=== PATIENT | female | born 1980 | race Caucasian/White ===

== ENCOUNTER 2016-11-21 08:36 | Day surgery (SDC) | payer BC ==
[~2016-11-21 08:36] MED LIST: Lactated Ringers 1,000 ML IV SCH
[2016-11-21] MEDS ORDERED: Ondansetron 4 MG/2 ML SDV ONE (08:55)
[2016-11-21] MEDS ORDERED: Lidocaine 2% 5 ML SDV ONE (08:55)
[2016-11-21] MEDS ORDERED: Propofol 200 MG/20 ML SDV ONE (08:56)
[2016-11-21] MEDS ORDERED: Midazolam 1 MG/ML 2 ML SDV ONE (08:56)
[2016-11-21] MEDS ORDERED: fentaNYL 250 MCG/5 ML SDV ONE (08:56)
--- NOTE | 2016-11-21 09:09 | PCM.PREANE ---
Preanesthetic Assessment - ANESTHESIA/TRANSFUSION/FAMILY HX Anesthesia/Transfusion History: Prior Anesthesia Type of Anesthesia Reaction: Denies: Allergy, Anesthesia Awareness, Excessive Somnolence, Excessive Nausea/Vomiting, Excessive Itching, Excessive Shivering, Malignant Hyperthermia, Malignant Hyperthermia, Family History, Pseudocholinesterase Deficiency, Pseudocholinesterase Deficiency, Family History of, Urinary Retention, Unknown, Other (see below) Family History of Anesthesia Reaction: No Other Intubation History Comment: no known problems - REVIEW OF SYSTEMS Constitutional: Reports: no symptoms 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 Respiratory: Reports: no symptoms Cardiovascular: Reports: no symptoms GI: Reports: no symptoms Other: Reports: none - PHYSICAL ASSESSMENT O2 Sat by Pulse Oximetry: 98 RR: 16 Vital Signs: Last Vital Signs Temp 37.1 C 11/21/16 08:52 Pulse 75 11/21/16 08:52 Resp 16 11/21/16 08:52 BP 125/83 11/21/16 08:52 Pulse Ox 98 11/21/16 08:52 Height: 1.68 m Weight: 93.44 kg ASA Class: 2 Mental Status: alert & oriented x3 Airway Class: Mallampati = 2 Dentition: Reports: normal dentition Thyro-Mental Finger Breadths: 3 Mouth Opening Finger Breadths: 3 ROM/Head Extension: full Respiratory Status: lungs clear to auscultation bilaterally Cardiovascular Status: regular rate & rhythm, normal S1, S2, no murmur, blood pressure WNL - LAB Values: Laboratory Last Values WBC 7.80 K/uL (4.0-11.0) 11/20/16 13:51 RBC 4.76 M/uL (4.30-5.90) 11/20/16 13:51 Hgb 13.5 g/dL (12.0-16.0) 11/20/16 13:51 Hct 39.7 % (36.0-46.0) 11/20/16 13:51 MCV 83.4 fL (80.0-98.0) 11/20/16 13:51 MCH 28.4 pg (27.0-32.0) 11/20/16 13:51 MCHC 34.0 g/dL (31.0-37.0) 11/20/16 13:51 RDW Std Deviation 38.5 fl (28.0-62.0) 11/20/16 13:51 RDW Coeff of Anum 13 % (11.0-15.0) 11/20/16 13:51 Plt Count 200 K/uL (150-400) 11/20/16 13:51 MPV 9.20 fL (7.40-12.00) 11/20/16 13:51 Nucleated RBC % 0.0 /100WBC 11/20/16 13:51 Nucleated RBCs # 0 K/uL 11/20/16 13:51 HCG, Qual NEGATIVE (NEG) 11/20/16 13:51 - ALLERGIES Allergies/Adverse Reactions: Allergies Allergy/AdvReac Type Severity Reaction Status Date / Time No Known Allergies Allergy Verified 10/20/15 10:12 - BLOOD Blood Available: No - ANESTHESIA PLAN Preop Beta Galen: No Anesthesia Type Planned: general anesthesia - ACKNOWLEDGEMENTS Pt an appropriate candidate for the planned anesthesia: Yes Alternatives and risks of anesthesia discussed w pt/guardian: Yes Pt/Guardian understands and agree with anesthesia plan: Yes PreAnesthesia Questionnaire Gastrointestinal History: Genitourinary History: Reports: Renal calculus Other Genitourinary History: hx kidney stones DENTAL BILLING SPECIALIST History: Reports: Polycystic Ovaries, , Other (see below) ( paiful periods) Musculoskeletal History: Reports: Fracture Psychiatric History: Reports: Anxiety, Depression Endocrine/Metabolic History: Reports: Obesity/BMI 30+ - Past Surgical History Head Surgeries/Procedures: Reports: None Female Surgical History: Reports: Breast reduction, Cervical cryotherapy Other Female Surgeries/Procedures: hx of laparoscopy for PCOS '01, breast reduction '02, laser of cervix '05 Musculoskeletal Surgical History: Reports: Other (see below) Other Musculoskeletal Surgeries/Procedures:: hx surgery for fx left leg/ankle with plate - SUBSTANCE USE Smoking Status *Q: Former Smoker (quit 10 years ago) Recreational Drug Use History: No - HOME MEDS Home Medications: Home Meds buPROPion [Wellbutrin XL] 1 tab PO DAILY 11/16/16 [History] - CURRENT (IN HOUSE) MEDS Current Meds: Current Medications Lactated Ringer's (Ringers, Lactated) 1,000 mls @ 125 mls/hr IV ASDIRECTED [facility] Last Admin: 11/21/16 08:56 Dose: 125 mls/hr Discontinued Medications Fentanyl (Sublimaze) Confirm Administered Dose 250 mcg .ROUTE .STK-MED ONE Stop: 11/21/16 08:57 Lidocaine (Xylocaine-Mpf 2%) Confirm Administered Dose 5 ml .ROUTE .STK-MED ONE Stop: 11/21/16 08:56 Midazolam HCl (Versed 1 Mg/Ml) Confirm Administered Dose 2 mg .ROUTE .STK-MED ONE Stop: 11/21/16 08:57 Ondansetron HCl (Zofran) Confirm Administered Dose 4 mg .ROUTE .STK-MED ONE Stop: 11/21/16 08:56 Propofol (Diprivan 20 Ml) Confirm Administered Dose 200 mg .ROUTE .STK-MED ONE Stop: 11/21/16 08:57
[2016-11-21] MEDS ORDERED: ePHEDrine 50 MG/ML SDV ONE (09:59)
[2016-11-21] MEDS ORDERED: fentaNYL 100 MCG/2 ML SDV IVPUSH PRN (10:08)
[2016-11-21] MEDS ORDERED: Lactated Ringers 1,000 ML IV SCH (10:15)
[2016-11-21] MEDS ORDERED: Phenylephrine/Normal Saline 100 MCG/ML 10 ML Syringe ONE (10:19)
--- NOTE | 2016-11-21 10:40 | PCM.OPNOTE ---
- General Post-Op/Procedure Note Date of Surgery/Procedure: 11/21/16 Operative Procedure(s): cervical biopsies, fractions dilatation and curettage, diagnostic hysteroscopy. Findings: Uterus anteverted, bilateral tubal ostia identified, no endometrial lesions, no endocervical lesions, ectropion very friable, no cervical lesions identified. Pre Op Diagnosis: abnormal uterine bleeding, postcoital bleeding. Post-Op Diagnosis: Same Anesthesia Technique: General ET tube Primary Surgeon: Ekaterina Arreola Anesthesia Provider: Kwesi Olmstead Pathology: cervical biopsies at 5,7 and 12 o'clock, endocervical curettings, endometrial curettings. EBL in mLs: 50 Complications: None Condition: Good
[2016-11-21 12:13] VITALS: BP 112/74
--- NOTE | 2016-11-21 12:25 | OR ---
SURGEON: Ekaterina Arreola M.D. DATE OF PROCEDURE: 11/21/2016 PREOPERATIVE DIAGNOSIS: Abnormal uterine bleeding with postcoital bleeding. POSTOPERATIVE DIAGNOSIS: Abnormal uterine bleeding with postcoital bleeding. PROCEDURE: Cervical biopsies, fractional D and C, diagnostic hysteroscopy, and cauterization of the exocervix. ANESTHESIA: General endotracheal. FLUIDS: 1300 mL crystalloid. ESTIMATED BLOOD LOSS: 50 mL. FINDINGS: There was a large ectropion which was very friable and bled significantly with biopsies. The endocervix and uterine cavity and endometrium appeared normal on hysteroscopy. There was excellent visualization of the uterine cavity and cervix on hysteroscopy. Bimanual examination had revealed an anteverted 7-week size uterus, mobile without any adnexal masses. COMPLICATIONS: None known. DISPOSITION: Stable to recovery. HYSTEROSCOPIC DEFICIT: 45 mL. BRIEF HISTORY: This is a 36-year-old female. She presents with abnormal uterine bleeding. She has consistent bleeding during and sometimes after intercourse. [place] is not painful but she has a large amount of bright red blood following intercourse and that lasts for a day or two subsequently. She does not necessarily have pain. Periods have been irregular. She states that this is normal for her during basketball season due to stress. She also notes that her most recent period was extremely heavy but only lasted 3 days. She does have a personal history of cervical dysplasia of RHINA 2 to 3 with a prior laser ablation in 2004. Pap smears since that time have been normal. Pap smear on 10/24/2016 was normal. Saline-enhanced ultrasound was also performed. It did not reveal any discrete polyps or lesions, however, she requires tissue sampling including endocervical curetting due to her history of cervical dysplasia. Also, I have recommended cauterization of the cervix as I believe in the absence of other pathology that the bleeding is coming from a very friable ectropion. Therefore, we will proceed with a ball-tip cautery of the area of ectropion at the time of hysteroscopy if no other etiology is identified. Surgical risks were discussed including bleeding, infection, uterine perforation, with injury to surrounding organs, risk of fluid overload, risk of thromboembolism with the cauterization procedure, risk of cervical stenosis, and anesthesia risk were all discussed. Understanding all these risks, she does desire to proceed. DESCRIPTION OF PROCEDURE: With the patient in dorsal lithotomy position, under adequate general endotracheal anesthesia, the perineum and vagina were prepped with Betadine and draped in usual fashion for vaginal surgery. Bimanual examination was performed. After an appropriate time-out was held, speculum was placed in the vagina. The cervix was treated with Lugol solution. There were no areas of discrete lesion noted, therefore random biopsies were obtained at 12, 5, and 7 o'clock of the cervix. Additionally, when the biopsies were obtained, there was a large amount of bleeding filling the lower vagina and dripping down the speculum, that bleeding was controlled with ball-tip cautery. Endocervical curettage was then performed using a sharp curette and then collecting with a Cytobrush. The hysteroscope was able to be placed into the uterine cavity without any further cervical dilatation, this was a 5 mm hysteroscope, there was excellent visualization of the uterine cavity with bilateral tubal ostia identified. There were no evidence of any discrete lesions. Therefore, hysteroscopy was completed. Sharp curettage of the endometrium was then performed starting at 12 o'clock and proceeding in a clockwise manner. A moderate amount of tissue was obtained. Once this was completed, the ball-tip cautery was used to further cauterize the entire exocervix that contained the ectropion. This being completed, hemostasis was evident. The instruments were removed from the vagina. Final sponge, needle, and instrument counts were reported as correct. There were no known complications. The patient was transferred to recovery in good condition. ZAHIRA BARAHONA /[id number]
== END 2016-11-21 12:10 | disposition home or self-care (01) ==
LOC: MW.SDS 08:36
PROVIDERS: ATTEND Obstetrics & Gynecology
PROC: 0UQ Female Reproductive System, Repair (ICD-10-PCS; principal; 2016-11-21)
PROC: 0UBC8ZX Excision of Cervix, Via Natural or Artificial Opening Endoscopic, Diagnostic (ICD-10-PCS; 2016-11-21)
PROC: 0UDB8ZX Extraction of Endometrium, Via Natural or Artificial Opening Endoscopic, Diagnostic (ICD-10-PCS; 2016-11-21)
DX: N93.9 Abnormal uterine and vaginal bleeding, unspecified (principal); N93.0 Postcoital and contact bleeding; E28.2 Polycystic ovarian syndrome; N83.209 Unspecified ovarian cyst, unspecified side; Z87.891 Personal history of nicotine dependence
CPT/HCPCS: 36415; 57510; 58558; 84703; 85027; J2250; J2405; J3010; J7120; 00952; 88305; J2704

== ENCOUNTER 2017-04-03 09:10 | Day surgery (SDC) | payer BC ==
[2017-04-02 13:48] LABS: CHLORIDE,CL 106 mmol/L (98-110); SODIUM,NA 139 mmol/L (136-146)
[2017-04-03] MEDS: Lactated Ringers 1,000 ML IV SCH ×2 (09:35→14:53)
[2017-04-03] MEDS ORDERED: Lidocaine 2% 5 ML SDV ONE (10:39)
[2017-04-03] MEDS ORDERED: Ketorolac 30 MG/ML SDV ONE (10:40)
[2017-04-03] MEDS ORDERED: Ondansetron 4 MG/2 ML SDV ONE (10:40)
[2017-04-03] MEDS ORDERED: Propofol 200 MG/20 ML SDV ONE ×2 (10:40→11:02)
[2017-04-03] MEDS ORDERED: fentaNYL 250 MCG/5 ML SDV ONE (10:40)
[2017-04-03] MEDS ORDERED: fentaNYL 100 MCG/2 ML SDV ONE (10:40)
[2017-04-03] MEDS ORDERED: Midazolam 1 MG/ML 2 ML SDV ONE (10:40)
[2017-04-03] MEDS ORDERED: Neostigmine Methylsulfate 1 MG/ML 5 ML Syringe ONE (10:40)
[2017-04-03] MEDS ORDERED: Fluorescein 5 ML Vial ONE ×2 (10:42→10:53)
--- NOTE | 2017-04-03 10:53 | PCM.PREANE ---
Preanesthetic Assessment - Anesthesia/Transfusion/Family Hx Anesthesia History: Prior Anesthesia Without Reaction Family History of Anesthesia Reaction: No Transfusion History: No Prior Transfusion(s) Intubation History: Unknown - Review of Systems General: No Symptoms Pulmonary: No Symptoms Cardiovascular: No Symptoms Gastrointestinal: No Symptoms Neurological: No Symptoms Other: Reports: None - Physical Assessment NPO Status Date: 04/02/17 NPO Status Time: 20:00 O2 Sat by Pulse Oximetry: 98 Respiratory Rate: 16 Vital Signs: Last Vital Signs Temp 36.7 C 04/03/17 09:33 Pulse 58 L 04/03/17 09:33 Resp 16 04/03/17 09:33 BP 115/67 04/03/17 09:33 Pulse Ox 98 04/03/17 09:33 Height: 1.68 m Weight: 93.44 kg ASA Class: 2 Mental Status: Alert & Oriented x3 Airway Class: Mallampati = 2 Dentition: Reports: Normal Dentition Thyro-Mental Finger Breadths: 3 Mouth Opening Finger Breadths: 3 ROM/Head Extension: Full Lungs: Clear to Auscultation, Normal Respiratory Effort Cardiovascular: Regular Rate, Regular Rhythm - Lab Values: Laboratory Last Values WBC 6.99 K/uL (4.0-11.0) 04/02/17 13:10 RBC 4.92 M/uL (4.30-5.90) 04/02/17 13:10 Hgb 13.2 g/dL (12.0-16.0) 04/02/17 13:10 Hct 39.4 % (36.0-46.0) 04/02/17 13:10 MCV 80.1 fL (80.0-98.0) 04/02/17 13:10 MCH 26.8 pg (27.0-32.0) L 04/02/17 13:10 MCHC 33.5 g/dL (31.0-37.0) 04/02/17 13:10 RDW Std Deviation 38.4 fl (28.0-62.0) 04/02/17 13:10 RDW Coeff of Anum 13 % (11.0-15.0) 04/02/17 13:10 Plt Count 176 K/uL (150-400) 04/02/17 13:10 MPV 9.30 fL (7.40-12.00) 04/02/17 13:10 Nucleated RBC % 0.0 /100WBC 04/02/17 13:10 Nucleated RBCs # 0 K/uL 04/02/17 13:10 Sodium 139 mmol/L (136-146) 04/02/17 13:10 Potassium 4.0 mmol/L (3.5-5.1) 04/02/17 13:10 Chloride 106 mmol/L (98-110) 04/02/17 13:10 Carbon Dioxide 27 mmol/L (21-31) 04/02/17 13:10 BUN 11 mg/dL (6.0-23.0) 04/02/17 13:10 Creatinine 0.7 mg/dL (0.6-1.5) 04/02/17 13:10 Est Cr Clr Drug Dosing 104.01 mL/min 04/02/17 13:10 Estimated GFR (MDRD) > 60.0 ml/min 04/02/17 13:10 Glucose 115 mg/dL (60-110) H 04/02/17 13:10 Calcium 9.0 mg/dL (8.8-10.8) 04/02/17 13:10 HCG, Qual NEGATIVE (NEG) 04/02/17 13:10 Blood Type A POSITIVE 04/02/17 13:10 Antibody Screen NEGATIVE 04/02/17 13:10 - Allergies Allergies/Adverse Reactions: Allergies Allergy/AdvReac Type Severity Reaction Status Date / Time No Known Allergies Allergy Verified 10/20/15 10:12 - Blood Blood Available: No - Anesthesia Plan Pre-Op Medication Ordered: None - Acknowledgements Anesthesia Type Planned: General Anesthesia Pt an Appropriate Candidate for the Planned Anesthesia: Yes Alternatives and Risks of Anesthesia Discussed w Pt/Guardian: Yes Pt/Guardian Understands and Agrees with Anesthesia Plan: Yes PreAnesthesia Questionnaire Gastrointestinal History: Genitourinary History: Reports: Renal Calculus Other Genitourinary History: hx kidney stones 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 (See Below), Polycystic Ovaries, Musculoskeletal History: Reports: Fracture Neurological History: Reports: Concussion Other Neuro History: concusion in april 2016 Psychiatric History: Reports: Anxiety, Depression Endocrine/Metabolic History: Reports: Obesity/BMI 30+ Hematologic History: Reports: None - Past Surgical History Head Surgeries/Procedures: Reports: None Female Surgical History: Reports: Breast Reduction, Cervical Cryotherapy Other Female Surgeries/Procedures: hx of laparoscopy for PCOS '01, breast reduction '02, laser of cervix '05, hysteroscopy with fractional D&C, cervical bx and cauterixation 11/24 Musculoskeletal Surgical History: Reports: Other (See Below) Other Musculoskeletal Surgeries/Procedures:: hx surgery for fx left leg/ankle with plate '02 - SUBSTANCE USE Smoking Status *Q: Former Smoker (more than 10 years ago) Tobacco Use Within Last Twelve Months: No Recreational Drug Use History: No - HOME MEDS Home Medications: Home Meds buPROPion [Wellbutrin XL] 150 mg PO DAILY 11/16/16 [History] medroxyPROGESTERone [Provera] 10 mg PO ASDIRECTED 03/28/17 [History] - CURRENT (IN HOUSE) MEDS Current Meds: Current Medications Lactated Ringer's (Ringers, Lactated) 1,000 mls @ 125 mls/hr IV ASDIRECTED [facility] Last Admin: 04/03/17 09:35 Dose: 125 mls/hr Discontinued Medications Fentanyl (Sublimaze) Confirm Administered Dose 100 mcg .ROUTE .STK-MED ONE Stop: 04/03/17 10:41 Fentanyl (Sublimaze) Confirm Administered Dose 250 mcg .ROUTE .STK-MED ONE Stop: 04/03/17 10:41 Fluorescein Sodium (Ak-Fluor) Confirm Administered Dose 5 ml .ROUTE .STK-MED ONE Stop: 04/03/17 10:43 Glycopyrrolate () Confirm Administered Dose 1 mg .ROUTE .STK-MED ONE Stop: 04/03/17 10:41 Ketorolac Tromethamine (Toradol) Confirm Administered Dose 30 mg .ROUTE .STK- MED ONE Stop: 04/03/17 10:41 Lidocaine (Xylocaine-Mpf 2%) Confirm Administered Dose 10 ml .ROUTE .STK-MED ONE Stop: 04/03/17 10:40 Midazolam HCl (Versed 1 Mg/Ml) Confirm Administered Dose 2 mg .ROUTE .STK-MED ONE Stop: 04/03/17 10:41 Neostigmine Methylsulfate (Neostigmine) Confirm Administered Dose 5 mg .ROUTE .STK-MED ONE Stop: 04/03/17 10:41 Ondansetron HCl (Zofran) Confirm Administered Dose 4 mg .ROUTE .STK-MED ONE Stop: 04/03/17 10:41 Propofol (Diprivan 20 Ml) Confirm Administered Dose 400 mg .ROUTE .STK-MED ONE Stop: 04/03/17 10:41 Rocuronium [place] (Zemuron) Confirm Administered Dose 50 mg .ROUTE .STK-MED ONE Stop: 04/03/17 10:41
[2017-04-03] MEDS ORDERED: ceFAZolin 2 GM in Premix Bag 1 BAG IV ONE (11:15)
[2017-04-03] MEDS ORDERED: HYDROmorphone 2 MG/ML Syringe ONE (11:45)
[2017-04-03] MEDS ORDERED: Furosemide 40 MG/4 ML VIAL ONE (12:09)
[2017-04-03] MEDS ORDERED: Promethazine 25 MG/ML SDV IM PRN (12:32)
[2017-04-03] MEDS ORDERED: Ondansetron 4 MG/2 ML SDV IVPUSH PRN (12:32)
[2017-04-03] MEDS ORDERED: Morphine 2 MG/ML Syringe IVPUSH PRN (12:32)
--- NOTE | 2017-04-03 12:32 | PCM.OPNOTE ---
- General Post-Op/Procedure Note Date of Surgery/Procedure: 04/03/17 Operative Procedure(s): total vaginal hysterectomy with bilateral salpingectomy Findings: uterus 10 weeks size boggy, bilateral tubes and ovaries appear normal, cystoscopy shows copious flow of bright yellow urine from bilateral ureteral orifice, apparent inflammation in lower trigone area. Pre Op Diagnosis: menometrorrhagia, endometrial hyperplasia, postcoital bleeding. Post-Op Diagnosis: Same Anesthesia Technique: General ET Tube Primary Surgeon: Ekaterina Arreola Secondary Surgeon: Connie Graff Anesthesia Provider: Luis A Parsons Inbound Customer Service Representative: Alex Fong Pathology: uterus, bilateral fallopian tubes. Fluid Replacement, Intraop: 1,000 EBL in mLs: 150 Complications: None Known Condition: Good
[2017-04-03] MEDS ORDERED: HYDROmorphone 2 MG/ML Syringe IVPUSH ONE (12:43)
[2017-04-03] MEDS: fentaNYL 100 MCG/2 ML SDV IVPUSH PRN ×4 (13:04→13:46)
--- NOTE | 2017-04-03 14:06 | OR ---
SURGEON: Ekaterina Arreola M.D. DATE OF PROCEDURE: 04/03/2017 PREOPERATIVE DIAGNOSES: Menometrorrhagia, endometrial hyperplasia, postcoital bleeding. POSTOPERATIVE DIAGNOSES: Menometrorrhagia, endometrial hyperplasia, postcoital bleeding. PROCEDURE: Total vaginal hysterectomy with bilateral salpingectomy and cystoscopy. ANESTHESIA: General endotracheal. FLUIDS: 1300 mL crystalloid. ESTIMATED BLOOD LOSS: Between 150 and 200 mL. COMPLICATIONS: None known. DISPOSITION: Stable to recovery. SPECIMENS: Uterus and bilateral fallopian tubes. FINDINGS: Uterus boggy 8-10 week size, with normal ovaries and fallopian tubes. On cystoscopy there was no evidence of trauma to the bladder mucose, there was an areas of inflammation at the trigone. There was also two orifices for the left ureter with copious flow to both orifices, as well as normal flow from the right ureter. BRIEF HISTORY: This is a 36-year-old female with abnormal uterine bleeding. She has endometrial hyperplasia, which had persistently abnormal bleeding and in fact she has extremely heavy postcoital bleeding. Each time following intercourse, she has had an episode of heavy bleeding. She has been treated with Provera and also with cauterization of the cervix and with all of these interventions she continues to have heavy postcoital bleeding; therefore, I did offer her a hysterectomy with risks including bleeding, infection, injury to bowel, bladder, blood vessels, or other organs, risk of thromboembolic event, risk of anesthesia. Understanding all these risks, she does desire to proceed. Additionally, she desires removal of her tubes as long as it does not add significantly to the surgery due to desired risk reduction for ovarian cancer. She also understands that there is A possibility of change in sexual function with hysterectomy. DESCRIPTION OF PROCEDURE: With the patient in dorsal lithotomy position, under adequate general endotracheal anesthesia, the perineum and vagina were prepped with Betadine and the abdomen was prepped with chlorhexidine and draped in the usual fashion for vaginal surgery. SCDs were in place. Pandey catheter had been placed and an appropriate time-out was held. She had received 2 g of Ancef IV preoperatively. Bimanual examination revealed a mobile 10-week size uterus. Weighted speculum was placed posteriorly and vaginal sidewall retractors were placed. The cervix was circumscribed with electrocautery and the anterior cul-de-sac was entered sharply. The right angle retractor was placed anteriorly. The posterior cul-de - sac was entered sharply and the Taya weighted speculum was placed posteriorly. The uterosacral ligaments were cross clamped, cut, and ligated using a Miki ligature of 2-0 Polysorb bilaterally. These were retained with the needle intact for tagging the vaginal apices. Two additional pedicles were taken on the right and the left using a Miki retractor and a Miki ligature of 2-0 Polysorb. The remaining pedicle at the utero-ovarian ligament was then cross clamped, cut, and ligated. Bilateral tubes were easily within the field of view as were the ovaries. The ovaries appeared normal. The ligament between the fimbria and the ovary was then cross clamped, cut, and ligated using a Miki ligature of 2-0 Polysorb and the remaining proximal portion of the mesosalpinx was then cross clamped, cut, and ligated using a Miki ligature of 2-0 Polysorb and bilateral tubes were removed in this fashion without any difficulty. The retained ligatures to the tubo-ovarian ligaments were carefully inspected and were hemostatic bilaterally, therefore, they were released. The right pedicles were all completely hemostatic near the left uterosacral ligament pedicle. There was a small area of bleeding. This was grasped with a Miki clamp, and again then ligated using a Miki ligature of 2-0 Polysorb. The pedicles all being completely hemostatic, the vaginal cuff was closed after the vaginal apices had been ligated to the retained uterosacral ligament ligatures bilaterally. The cuff was closed using a running locked suture of 0 Polysorb. The bladder was then deflated and removed. IV Lasix and fluorescein had been given. Bilateral ureteral orifices had been noted. There was note of a double ureteral orifice on the left and there was flow from the bilateral ureteral orifices on the left as well as a single ureteral orifice on the right. There was some inflammation near the middle extremely lower bladder trigone, but was not actively bleeding. Therefore, the bladder was drained. The cystoscope was removed and a new Pandey catheter was placed. The vaginal apex and cuff was again inspected using a bivalve speculum and was completely hemostatic. Therefore, all of the sponge, needle, instrument count were reported as correct. There were no known complications. The patient was transferred to recovery in good condition. ZAHIRA ABRAHONA /[id number]
[2017-04-03] MEDS: Acetaminophen/oxyCODONE 325-5 MG Tab PO PRN ×2 (18:06→22:59)
--- NOTE | 2017-04-03 18:35 | PCM.SURGPN ---
- General Info Date of Service: 04/03/17 POD#: 0 Functional Status: Reports: Tolerating Diet, Ambulating. Denies: Pain Controlled (02/17), Urinating (catheter still in place.) - Review of Systems General: Reports: No Symptoms HEENT: Reports: No Symptoms Pulmonary: Reports: No Symptoms Cardiovascular: Reports: No Symptoms Gastrointestinal: Reports: No Symptoms Genitourinary: Reports: No Symptoms Musculoskeletal: Reports: No Symptoms Skin: Reports: No Symptoms Neurological: Reports: No Symptoms Psychiatric: Reports: No Symptoms - Patient Data Vitals - Most Recent: Last Vital Signs Temp 36.1 C 04/03/17 14:45 Pulse 67 04/03/17 14:45 Resp 18 04/03/17 14:45 BP 112/58 L 04/03/17 14:45 Pulse Ox 95 04/03/17 14:45 Weight - Most Recent: 93.44 kg I&O - Last 24 Hours: Intake & Output 04/03/17 04/03/17 04/03/17 06:59 14:59 22:59 Intake Total 3000 Output Total 850 270 Balance 2150 -270 Lab Results Last 24 Hrs: Laboratory Results - last 24 hr 04/03/17 Range/Units 15:10 Hgb 13.2 (12.0-16.0) g/dL Hct 39.3 (36.0-46.0) % Med Orders - Current: Current Medications Fentanyl (Sublimaze) 50 mcg IVPUSH Q5M PRN PRN Reason: Pain (severe 7-10) Stop: 04/04/17 12:43 Last Admin: 04/03/17 13:46 Dose: 50 mcg Lactated Ringer's (Ringers, Lactated) 1,000 mls @ 125 mls/hr IV ASDIRECTED RASHAWN Last Admin: 04/03/17 14:53 Dose: 125 mls/hr Ketorolac Tromethamine (Toradol) 30 mg IVPUSH Q6H [facility] Stop: 04/08/17 18:32 Morphine Sulfate (Morphine) 2 mg IVPUSH Q2H PRN PRN Reason: Pain (severe 7-10) Last Admin: 04/03/17 14:21 Dose: 2 mg Ondansetron HCl (Zofran) 4 mg IVPUSH Q6H PRN PRN Reason: Nausea/Vomiting Last Admin: 04/03/17 18:26 Dose: 4 mg Oxycodone/Acetaminophen (Percocet 325-5 Mg) 1 - 2 tab PO Q4H PRN PRN Reason: Pain (moderate 4-6) Last Admin: 04/03/17 18:06 Dose: 2 tab Promethazine HCl (Phenergan) 25 mg IM Q6H PRN PRN Reason: Nausea/Vomiting Last Admin: 04/03/17 15:06 Dose: 25 mg Discontinued Medications Fentanyl (Sublimaze) Confirm Administered Dose 100 mcg .ROUTE .STK-MED ONE Stop: 04/03/17 10:41 Fentanyl (Sublimaze) Confirm Administered Dose 250 mcg .ROUTE .STK-MED ONE Stop: 04/03/17 10:41 Fluorescein Sodium (Ak-Fluor) Confirm Administered Dose 5 ml .ROUTE .STK-MED ONE Stop: 04/03/17 10:43 Fluorescein Sodium (Ak-Fluor) Confirm Administered Dose 5 ml .ROUTE .STK-MED ONE Stop: 04/03/17 10:54 Furosemide (Lasix) Confirm Administered Dose 40 mg .ROUTE .STK-MED ONE Stop: 04/03/17 12:10 Glycopyrrolate () Confirm Administered Dose 1 mg .ROUTE .STK-MED ONE Stop: 04/03/17 10:41 Hydromorphone HCl (Dilaudid) Confirm Administered Dose 2 mg .ROUTE .STK-MED ONE Stop: 04/03/17 11:46 Hydromorphone HCl (Dilaudid) 0 mg IVPUSH ONETIME ONE Stop: 04/03/17 12:44 Cefazolin Sodium/Dextrose 2 gm (/ Premix) 50 mls @ as directed IV .STK-MED ONE Stop: 04/03/17 11:16 Ketorolac Tromethamine (Toradol) Confirm Administered Dose 30 mg .ROUTE .STK- MED ONE Stop: 04/03/17 10:41 Lidocaine (Xylocaine-Mpf 2%) Confirm Administered Dose 10 ml .ROUTE .STK-MED ONE Stop: 04/03/17 10:40 Midazolam HCl (Versed 1 Mg/Ml) Confirm Administered Dose 2 mg .ROUTE .STK-MED ONE Stop: 04/03/17 10:41 Neostigmine Methylsulfate (Neostigmine) Confirm Administered Dose 5 mg .ROUTE .STK-MED ONE Stop: 04/03/17 10:41 Ondansetron HCl (Zofran) Confirm Administered Dose 4 mg .ROUTE .STK-MED ONE Stop: 04/03/17 10:41 Propofol (Diprivan 20 Ml) Confirm Administered Dose 400 mg .ROUTE .STK-MED ONE Stop: 04/03/17 10:41 Propofol (Diprivan 20 Ml) Confirm Administered Dose 200 mg .ROUTE .STK-MED ONE Stop: 04/03/17 11:03 Rocuronium Bent (Zemuron) Confirm Administered Dose 50 mg .ROUTE .STK-MED ONE Stop: 04/03/17 10:41 - Exam General: Alert, Oriented Neck: Supple Lungs: Normal Respiratory Effort GI/Abdominal Exam: Soft, Non-Tender, No Organomegaly, No Distention, No Abnormal Bruit, No Mass, Pelvis Stable Extremities: No Pedal Edema Skin: Warm, Dry, Intact Neurological: No New Focal Deficit Psy/Mental Status: Alert, Normal Affect, Normal Mood - Problem List & Annotations (1) Endometrial hyperplasia SNOMED Code(s): 971952075 Code(s): N85.00 - ENDOMETRIAL HYPERPLASIA, UNSPECIFIED Status: Acute Current Visit: Yes (2) Abnormal uterine bleeding unrelated to menstrual cycle SNOMED Code(s): 618121918 Code(s): N93.9 - ABNORMAL UTERINE AND VAGINAL BLEEDING, UNSPECIFIED Status : Acute Current Visit: No - Problem List Review Problem List Initiated/Reviewed/Updated: Yes - My Orders Last 24 Hours: Active Orders 24 hr Category Date Time Status Patient Status [ADT] Routine ADT 04/03/17 12:32 Active Antiembolic Devices [RC] PER UNIT ROUTINE Care 04/03/17 12:33 Active Notify Provider Intake and Out [RC] ASDIRECTED Care 04/03/17 12:32 Active Notify Provider Vital Signs [RC] ASDIRECTED Care 04/03/17 12:32 Active Oxygen Therapy [RC] ASDIRECTED Care 04/03/17 12:32 Active RT Incentive Spirometry [RC] Q2HWA Care 04/03/17 12:32 Active Up With Assistance [RC] PER UNIT ROUTINE Care 04/03/17 12:32 Active Up ad Marie [RC] PER UNIT ROUTINE Care 04/03/17 12:32 Active Urinary Catheter Removal [RC] Per Unit Routine Care 04/03/17 12:32 Active Vital Signs [RC] PER UNIT ROUTINE Care 04/03/17 12:32 Active Regular Diet [DIET] Diet 04/03/17 Dinner Active BASIC METABOLIC PANEL,BMP [CHEM] AM Lab 04/04/17 12:45 Ordered CBC WITH AUTO DIFF [HEME] AM Lab 04/04/17 05:11 Ordered Acetaminophen/oxyCODONE [Percocet 325-5 MG] Med 04/03/17 12:32 Active 1 - 2 tab PO Q4H PRN Ketorolac [Toradol] Med 04/03/17 18:45 Ordered 30 mg IVPUSH Q6H Lactated Ringers [Ringers, Lactated] 1,000 ml Med 04/03/17 07:15 Active IV ASDIRECTED Morphine Med 04/03/17 12:32 Active 2 mg IVPUSH Q2H PRN Ondansetron [Zofran] Med 04/03/17 12:32 Active 4 mg IVPUSH Q6H PRN Promethazine [Phenergan] Med 04/03/17 12:32 Active 25 mg IM Q6H PRN fentaNYL [Sublimaze] Med 04/03/17 12:43 Active 50 mcg IVPUSH Q5M PRN Peripheral IV Discontinue [OM.PC] Routine Oth 04/03/17 12:32 Ordered Sequential Compression Device [OM.PC] Per Unit Routine Oth 04/03/17 12:32 Ordered Resuscitation Status Routine Resus Stat 04/03/17 12:32 Ordered Medication Orders Fentanyl (Sublimaze) 50 mcg IVPUSH Q5M PRN PRN Reason: Pain (severe 7-10) Stop: 04/04/17 12:43 Last Admin: 04/03/17 13:46 Dose: 50 mcg Admin: 04/03/17 13:21 Dose: 50 mcg Admin: 04/03/17 13:12 Dose: 50 mcg Admin: 04/03/17 13:04 Dose: 50 mcg Lactated Ringer's (Ringers, Lactated) 1,000 mls @ 125 mls/hr IV ASDIRECTED RASHAWN Last Admin: 04/03/17 14:53 Dose: 125 mls/hr Infusion: 04/03/17 14:53 Dose: 125 mls/hr Admin: 04/03/17 09:35 Dose: 125 mls/hr Ketorolac Tromethamine (Toradol) 30 mg IVPUSH Q6H [facility] Stop: 04/08/17 18:32 Morphine Sulfate (Morphine) 2 mg IVPUSH Q2H PRN PRN Reason: Pain (severe 7-10) Last Admin: 04/03/17 14:21 Dose: 2 mg Ondansetron HCl (Zofran) 4 mg IVPUSH Q6H PRN PRN Reason: Nausea/Vomiting Last Admin: 04/03/17 18:26 Dose: 4 mg Oxycodone/Acetaminophen (Percocet 325-5 Mg) 1 - 2 tab PO Q4H PRN PRN Reason: Pain (moderate 4-6) Last Admin: 04/03/17 18:06 Dose: 2 tab Promethazine HCl (Phenergan) 25 mg IM Q6H PRN PRN Reason: Nausea/Vomiting Last Admin: 04/03/17 15:06 Dose: 25 mg - Assessment Assessment (Free Text/Narrative):: POD#0 after , stable, nausea improved after Phenergan, - Plan Plan (Free Text/Narrative):: reviewed operative findings. 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 Discussed operative findings. hemoglobin is stable, will therefore start ketorolac to augment pain control. May have catheter out ambulate tonight, anticipate discharge in am.
[2017-04-03] MEDS: Ketorolac 30 MG/ML SDV IVPUSH SCH (19:18)
[2017-04-04] MEDS: Ketorolac 30 MG/ML SDV IVPUSH SCH ×2 (01:32→06:48)
[2017-04-04 04:48] VITALS: BP 116/68
[2017-04-04 05:45] LABS: CHLORIDE,CL 105 mmol/L (98-110); SODIUM,NA 137 mmol/L (136-146)
--- NOTE | 2017-04-04 07:22 | PCM.SURGPN ---
- General Info Date of Service: 04/04/17 POD#: 1 Post-Op Diagnosis: endometrial hyperplasia Functional Status: Reports: Pain Controlled, Tolerating Diet, Ambulating. Denies: Urinating (catheter had to be replaced last night. 550 ml in bladder. ) - Review of Systems General: Reports: No Symptoms HEENT: Reports: No Symptoms Pulmonary: Reports: No Symptoms Cardiovascular: Reports: No Symptoms Gastrointestinal: Reports: No Symptoms Genitourinary: Reports: No Symptoms Musculoskeletal: Reports: No Symptoms Skin: Reports: No Symptoms Neurological: Reports: No Symptoms Psychiatric: Reports: No Symptoms - Patient Data Vitals - Most Recent: Last Vital Signs Temp 37.3 C 04/04/17 04:47 Pulse 77 04/04/17 04:47 Resp 16 04/04/17 04:47 BP 116/68 04/04/17 04:47 Pulse Ox 97 04/04/17 04:47 Weight - Most Recent: 93.44 kg I&O - Last 24 Hours: Intake & Output 04/03/17 04/04/17 04/04/17 22:59 06:59 14:59 Intake Total 1000 950 Output Total 270 600 Balance 730 350 Lab Results Last 24 Hrs: Laboratory Results - last 24 hr 04/03/17 04/04/17 04/04/17 Range/Units 15:10 04:55 04:55 WBC 12.00 H (4.0-11.0) K/uL RBC 4.34 (4.30-5.90) M/uL Hgb 13.2 11.5 L (12.0-16.0) g/dL Hct 39.3 35.0 L (36.0-46.0) % MCV 80.6 (80.0-98.0) fL MCH 26.5 L (27.0-32.0) pg MCHC 32.9 (31.0-37.0) g/dL RDW Std Deviation 38.9 (28.0-62.0) fl RDW Coeff of Anum 13 (11.0-15.0) % Plt Count 167 (150-400) K/uL MPV 9.50 (7.40-12.00) fL Neut % (Auto) 70.9 (48.0-80.0) % Lymph % (Auto) 20.0 (16.0-40.0) % Fleming % (Auto) 8.1 (0.0-15.0) % Eos % (Auto) 0.8 (0.0-7.0) % Baso % (Auto) 0.2 (0.0-1.5) % Neut # (Auto) 8.5 H (1.4-5.7) K/uL Lymph # (Auto) 2.4 (0.6-2.4) K/uL Fleming # (Auto) 1.0 H (0.0-0.8) K/uL Eos # (Auto) 0.1 (0.0-0.7) K/uL Baso # (Auto) 0.0 (0.0-0.1) K/uL Nucleated RBC % 0.0 /100WBC Nucleated RBCs # 0 K/uL Sodium 137 (136-146) mmol/L Potassium 4.1 (3.5-5.1) mmol/L Chloride 105 (98-110) mmol/L Carbon Dioxide 25 (21-31) mmol/L BUN 11 (6.0-23.0) mg/dL Creatinine 0.7 (0.6-1.5) mg/dL Est Cr Clr Drug Dosing 104.01 mL/min Estimated GFR (MDRD) > 60.0 ml/min Glucose 89 (60-110) mg/dL Calcium 8.2 L (8.8-10.8) mg/dL Med Orders - Current: Current Medications Fentanyl (Sublimaze) 50 mcg IVPUSH Q5M PRN PRN Reason: Pain (severe 7-10) Stop: 04/04/17 12:43 Last Admin: 04/03/17 13:46 Dose: 50 mcg Lactated Ringer's (Ringers, Lactated) 1,000 mls @ 125 mls/hr IV ASDIRECTED RASHAWN Last Admin: 04/03/17 14:53 Dose: 125 mls/hr Ketorolac Tromethamine (Toradol) 30 mg IVPUSH Q6H [facility] Stop: 04/08/17 19:01 Last Admin: 04/04/17 06:48 Dose: 30 mg Morphine Sulfate (Morphine) 2 mg IVPUSH Q2H PRN PRN Reason: Pain (severe 7-10) Last Admin: 04/03/17 14:21 Dose: 2 mg Ondansetron HCl (Zofran) 4 mg IVPUSH Q6H PRN PRN Reason: Nausea/Vomiting Last Admin: 04/03/17 18:26 Dose: 4 mg Oxycodone/Acetaminophen (Percocet 325-5 Mg) 1 - 2 tab PO Q4H PRN PRN Reason: Pain (moderate 4-6) Last Admin: 04/03/17 22:59 Dose: 1 tab Promethazine HCl (Phenergan) 25 mg IM Q6H PRN PRN Reason: Nausea/Vomiting Last Admin: 04/03/17 15:06 Dose: 25 mg Discontinued Medications Fentanyl (Sublimaze) Confirm Administered Dose 100 mcg .ROUTE .STK-MED ONE Stop: 04/03/17 10:41 Fentanyl (Sublimaze) Confirm Administered Dose 250 mcg .ROUTE .STK-MED ONE Stop: 04/03/17 10:41 Fluorescein Sodium (Ak-Fluor) Confirm Administered Dose 5 ml .ROUTE .STK-MED ONE Stop: 04/03/17 10:43 Fluorescein Sodium (Ak-Fluor) Confirm Administered Dose 5 ml .ROUTE .STK-MED ONE Stop: 04/03/17 10:54 Furosemide (Lasix) Confirm Administered Dose 40 mg .ROUTE .STK-MED ONE Stop: 04/03/17 12:10 Glycopyrrolate () Confirm Administered Dose 1 mg .ROUTE .STK-MED ONE Stop: 04/03/17 10:41 Hydromorphone HCl (Dilaudid) Confirm Administered Dose 2 mg .ROUTE .STK-MED ONE Stop: 04/03/17 11:46 Hydromorphone HCl (Dilaudid) 0 mg IVPUSH ONETIME ONE Stop: 04/03/17 12:44 Cefazolin Sodium/Dextrose 2 gm (/ Premix) 50 mls @ as directed IV .STK-MED ONE Stop: 04/03/17 11:16 Ketorolac Tromethamine (Toradol) Confirm Administered Dose 30 mg .ROUTE .STK- MED ONE Stop: 04/03/17 10:41 Lidocaine (Xylocaine-Mpf 2%) Confirm Administered Dose 10 ml .ROUTE .STK-MED ONE Stop: 04/03/17 10:40 Midazolam HCl (Versed 1 Mg/Ml) Confirm Administered Dose 2 mg .ROUTE .STK-MED ONE Stop: 04/03/17 10:41 Neostigmine Methylsulfate (Neostigmine) Confirm Administered Dose 5 mg .ROUTE .STK-MED ONE Stop: 04/03/17 10:41 Ondansetron HCl (Zofran) Confirm Administered Dose 4 mg .ROUTE .STK-MED ONE Stop: 04/03/17 10:41 Propofol (Diprivan 20 Ml) Confirm Administered Dose 400 mg .ROUTE .STK-MED ONE Stop: 04/03/17 10:41 Propofol (Diprivan 20 Ml) Confirm Administered Dose 200 mg .ROUTE .STK-MED ONE Stop: 04/03/17 11:03 Rocuronium [place] (Zemuron) Confirm Administered Dose 50 mg .ROUTE .STK-MED ONE Stop: 04/03/17 10:41 - Exam General: Alert, Oriented HEENT: Pupils Equal Neck: Supple Lungs: Clear to Auscultation, Normal Respiratory Effort Cardiovascular: Regular Rate, Regular Rhythm GI/Abdominal Exam: Normal Bowel Sounds, Soft, Non-Tender, No Organomegaly, No Distention, No Abnormal Bruit, No Mass, Pelvis Stable Extremities: Normal Inspection, Normal Range of Motion, Non-Tender, No Pedal Edema, Normal Capillary Refill Skin: Warm, Dry, Intact Neurological: No New Focal Deficit Psy/Mental Status: Alert, Normal Affect, Normal Mood - Problem List & Annotations (1) Endometrial hyperplasia SNOMED Code(s): 110673594 Code(s): N85.00 - ENDOMETRIAL HYPERPLASIA, UNSPECIFIED Status: Acute Current Visit: Yes (2) Abnormal uterine bleeding unrelated to menstrual cycle SNOMED Code(s): 853282367 Code(s): N93.9 - ABNORMAL UTERINE AND VAGINAL BLEEDING, UNSPECIFIED Status : Acute Current Visit: No - Problem List Review Problem List Initiated/Reviewed/Updated: Yes - My Orders Last 24 Hours: Active Orders 24 hr Category Date Time Status Patient Status [ADT] Routine ADT 04/03/17 12:32 Active Antiembolic Devices [RC] PER UNIT ROUTINE Care 04/03/17 12:33 Active Insert Pandey Catheter [Insert Urinary Catheter] [OM.PC] Care 04/04/17 02:00 Ordered Q24H Notify Provider Intake and Out [RC] ASDIRECTED Care 04/03/17 12:32 Active Notify Provider Vital Signs [RC] ASDIRECTED Care 04/03/17 12:32 Active Oxygen Therapy [RC] ASDIRECTED Care 04/03/17 12:32 Active RT Incentive Spirometry [RC] Q2HWA Care 04/03/17 12:32 Active Up With Assistance [RC] PER UNIT ROUTINE Care 04/03/17 12:32 Active Up ad Marie [RC] PER UNIT ROUTINE Care 04/03/17 12:32 Active Urinary Catheter Assessment [RC] ASDIRECTED Care 04/04/17 01:54 Active Urinary Catheter Removal [RC] Per Unit Routine Care 04/03/17 12:32 Active Vital Signs [RC] PER UNIT ROUTINE Care 04/03/17 12:32 Active Regular Diet [DIET] Diet 04/03/17 Dinner Active Acetaminophen/oxyCODONE [Percocet 325-5 MG] Med 04/03/17 12:32 Active 1 - 2 tab PO Q4H PRN Ketorolac [Toradol] Med 04/03/17 19:00 Active 30 mg IVPUSH Q6H Lactated Ringers [Ringers, Lactated] 1,000 ml Med 04/03/17 07:15 Active IV ASDIRECTED Morphine Med 04/03/17 12:32 Active 2 mg IVPUSH Q2H PRN Ondansetron [Zofran] Med 04/03/17 12:32 Active 4 mg IVPUSH Q6H PRN Promethazine [Phenergan] Med 04/03/17 12:32 Active 25 mg IM Q6H PRN fentaNYL [Sublimaze] Med 04/03/17 12:43 Active 50 mcg IVPUSH Q5M PRN Peripheral IV Discontinue [OM.PC] Routine Oth 04/03/17 12:32 Ordered Sequential Compression Device [OM.PC] Per Unit Routine Oth 04/03/17 12:32 Ordered Resuscitation Status Routine Resus Stat 04/03/17 12:32 Ordered Medication Orders Fentanyl (Sublimaze) 50 mcg IVPUSH Q5M PRN PRN Reason: Pain (severe 7-10) Stop: 04/04/17 12:43 Last Admin: 04/03/17 13:46 Dose: 50 mcg Admin: 04/03/17 13:21 Dose: 50 mcg Admin: 04/03/17 13:12 Dose: 50 mcg Admin: 04/03/17 13:04 Dose: 50 mcg Lactated Ringer's (Ringers, Lactated) 1,000 mls @ 125 mls/hr IV ASDIRECTED RASHAWN Last Admin: 04/03/17 14:53 Dose: 125 mls/hr Infusion: 04/03/17 14:53 Dose: 125 mls/hr Admin: 04/03/17 09:35 Dose: 125 mls/hr Ketorolac Tromethamine (Toradol) 30 mg IVPUSH Q6H [facility] Stop: 04/08/17 19:01 Last Admin: 04/04/17 06:48 Dose: 30 mg Admin: 04/04/17 01:32 Dose: 30 mg Admin: 04/03/17 19:18 Dose: 30 mg Morphine Sulfate (Morphine) 2 mg IVPUSH Q2H PRN PRN Reason: Pain (severe 7-10) Last Admin: 04/03/17 14:21 Dose: 2 mg Ondansetron HCl (Zofran) 4 mg IVPUSH Q6H PRN PRN Reason: Nausea/Vomiting Last Admin: 04/03/17 18:26 Dose: 4 mg Oxycodone/Acetaminophen (Percocet 325-5 Mg) 1 - 2 tab PO Q4H PRN PRN Reason: Pain (moderate 4-6) Last Admin: 04/03/17 22:59 Dose: 1 tab Admin: 04/03/17 18:06 Dose: 2 tab Promethazine HCl (Phenergan) 25 mg IM Q6H PRN PRN Reason: Nausea/Vomiting Last Admin: 04/03/17 15:06 Dose: 25 mg - Assessment Assessment (Free Text/Narrative):: POD#1 after TVH/salpingectomy and cystoscopy. She has personal history of urinary retention and urethral dilatation. Discussed use of bethanechol as needed for urinary retention Pain well controlled, ambulating without assist and tolerating po well. - Plan Plan (Free Text/Narrative):: Remove catheter after voiding this am, she may be discharged to home. Discharge instructions reviewed.
[2017-04-04] MEDS: Acetaminophen/oxyCODONE 325-5 MG Tab PO PRN (07:57)
--- NOTE | 2017-04-04 08:50 | PCM48HPAN ---
Post Anesthesia Note - EVALUATION WITHIN 48HRS OF ANESTHETIC Vital Signs in Normal Range: Yes Patient Participated in Evaluation: Yes Respiratory Function Stable: Yes Airway Patent: Yes Cardiovascular Function Stable: Yes Hydration Status Stable: Yes Pain Control Satisfactory: Yes Nausea and Vomiting Control Satisfactory: Yes Mental Status Recovered: Yes
== END 2017-04-04 09:30 | disposition home or self-care (01) ==
LOC: MW.SDS 09:10 → MW.MS 12:32 → MW.SDS 04-04 09:30
PROVIDERS: ATTEND Obstetrics & Gynecology
DX: N85.01 Benign endometrial hyperplasia (principal); N93.0 Postcoital and contact bleeding; E28.2 Polycystic ovarian syndrome; F32.9 Major depressive disorder, single episode, unspecified; Z87.891 Personal history of nicotine dependence; Z79.899 Other long term (current) drug therapy; Z98.890 Other specified postprocedural states
CPT/HCPCS: 36415; 58262; 80048; 84703; 85014; 85018; 85025; 85027; 86850; 86900; 86901; 88307; A9270; J0690; J1170; J1885; J1940; J2250; J2270; J2405; J2550; J3010; J7120; 00944; J2704